=== PATIENT | female | born 1945 | race Caucasian/White ===

== ENCOUNTER 2024-01-22 08:14 | Observation (INO) ==
[2024-01-22] MEDS ORDERED: Tranexamic Acid 1 GM/100ML BAG 2,000 MG/200 ML BAG IV ONE (09:09)
[2024-01-22] MEDS ORDERED: ceFAZolin 2 GM PREMIX 2 GM/50 ML BAG ONE (09:09)
[2024-01-22 09:43] LABS: Rapid COVID-19 Molecular Undetected (Undetected)
[2024-01-22] MEDS ORDERED: ROPIVACAINE 5 MG/ML 30 ML BTL (0.5%) ONE (11:51)
[2024-01-22] MEDS ORDERED: Scopolamine 1 mg/72hr PATCH ONE (11:57)
[2024-01-22] MEDS ORDERED: Magnesium Hydroxide LIQ 30 ML UDC PO PRN (15:06)
[2024-01-22] MEDS ORDERED: Lactulose 30 ml UDC PO PRN (15:06)
[2024-01-22] MEDS ORDERED: Ondansetron ODT 4 mg TAB 4 MG TAB PO PRN (15:06)
[2024-01-22] MEDS: Buffered Lidocaine 1% SYRIN 1 ml INTRADERM ONE (15:24)
[2024-01-22] MEDS: Lactated Ringers 1000 ml BAG 1,000 ML IV SCH ×2 (15:34→17:03)
[2024-01-22] MEDS: Ondansetron 4 mg VIAL 2 MG/ML 2 ml VIAL IV PRN (17:16)
[2024-01-22] MEDS: Morphine 2 MG/ML SYRINGE IV PRN (18:01)
[2024-01-22] MEDS: ceFAZolin 1 GM ADVAN 1 GM in NS 0.9% 50 ML 50 ML IVPB SCH (21:11)
[2024-01-22] MEDS: Magnesium Hydroxide LIQ 30 ML UDC PO SCH (21:15)
[2024-01-23 06:16] LABS: Hematocrit 32.8 % (35-45); Platelet Count 230 10^3/uL (150-450)
[2024-01-23 06:47] LABS: Calcium 8.2 mg/dL (8.6-10.3); Creatinine, Serum 0.59 mg/dL (0.51-0.95); Potassium 4.2 mmol/L (3.5-5.0); eGFR CKD-EPI 93.3 (>60)
[2024-01-23 10:09] VITALS: BP 103/62
[2024-01-23] MEDS: Vitamin THERAPEUTIC TAB PO SCH (10:14)
== END 2024-01-23 14:50 | disposition home or self-care (01) ==
LOC: AA 08:14 → INTOOBSV 08:14 → SSU 16:32
PROVIDERS: ADMIT Orthopaedic Surgery Adult Reconstructive Orthopaedic Surgery; ATTEND Orthopaedic Surgery Adult Reconstructive Orthopaedic Surgery